=== PATIENT | female | born 1965 | race Caucasian/White ===

== ENCOUNTER 2021-10-15 10:46 | Outpatient (CLI) | payer BC | END 2021-10-15 10:47 | disposition home or self-care (01) | LOC: CSHMAMMO 10:46 | PROVIDERS: ATTEND Internal Medicine | DX: Z12.31 Encounter for screening mammogram for malignant neoplasm of breast (principal) | CPT/HCPCS: 77063; 77067 ==

== ENCOUNTER 2023-10-22 10:13 | Outpatient (CLI) | payer BC | END 2023-10-22 10:14 | disposition home or self-care (01) | LOC: CSHMAMMO 10:13 | PROVIDERS: ATTEND Obstetrics & Gynecology | DX: Z12.31 Encounter for screening mammogram for malignant neoplasm of breast (principal) | CPT/HCPCS: 77063; 77067 ==